=== PATIENT | female | born 1995 | race Caucasian/White ===

== ENCOUNTER 2017-12-12 01:20 | Emergency (ER) | payer BC ==
[2017-12-12] MEDS ORDERED: CEPHALEXIN 500 MG CAP PO ONE (02:36)
[2017-12-12] MEDS ORDERED: CEPHALEXIN 500MG PREPACK#4 BTL TAKEHOME ONE (02:36)
--- NOTE | 2017-12-12 02:38 | EDPHY ---
H & P Stated Complaint: SHERRI "SPIDER BITE" INCREASED REDNESS, STREAK/SINCE YEST Time Seen by Provider: 12/12/17 02:30 HPI/ROS: HPI The patient presents with right arm pain for the last 1 day. Two days ago she noticed what looked like an insect bite on her in her right arm. A few hours ago she noticed that it was more painful than it would then. She also noticed that it was more red. She has not had any fevers or chills, nausea or vomiting. She does have a history of some sort of cellulitis previously that required treatment with antibiotics.. REVIEW OF SYSTEMS Constitutional: No fever, no chills. Eyes: No discharge. ENT: No sore throat. Cardiovascular: No chest pain, no palpitations. Respiratory: No cough, no shortness of breath. Gastrointestinal: No abdominal pain, no vomiting. Genitourinary: No hematuria. Musculoskeletal: No back pain. Skin: No rashes. Neurological: No headache. PMHx: Asthma Soc Hx: College student PHYSICAL General Appearance: Alert, no distress Eyes: Pupils equal and round no pallor or injection ENT, Mouth: Mucous membranes moist Respiratory: There are no retractions, lungs are clear to auscultation Cardiovascular: Regular rate and rhythm Gastrointestinal: Abdomen is soft and non-tender, no masses, bowel sounds normal Neurological: A&O, moves all extremities Skin: Warm and dry, right anterior arm with 5 mm papule which is erythematous with surrounding mild erythema and tenderness, no axillary adenopathy is present Musculoskeletal: Neck is supple non tender Extremities: symmetrical, full range of motion Psychiatric: Patient is oriented X 3, there is no agitation Source: Patient Exam Limitations: No limitations - Personal History LMP (Females 10-55): Now Current Tetanus Diphtheria and Acellular Pertussis (TDAP): Yes Tetanus Vaccine Date: <5 years - Medical/Surgical History Hx Asthma: Yes Hx Chronic Respiratory Disease: No Hx Diabetes: No Hx Cardiac Disease: No Hx Renal Disease: No Hx Cirrhosis: No Hx Alcoholism: No Hx HIV/AIDS: No Hx Splenectomy or Spleen Trauma: No Other PMH: Asthma, scoliosis-Plasencia Rods, UTI, marijuana use;[facility]-2012- PERSISTANT PHOTOPHOBIA, SINUS SX NOVEMBER/2017 - Social History Smoking Status: Never smoked Constitutional: Initial Vital Signs Temperature (C) 36.5 C 12/12/17 01:25 Heart Rate 76 12/12/17 01:25 Respiratory Rate 16 12/12/17 01:25 Blood Pressure 128/80 H 12/12/17 01:25 O2 Sat (%) 98 12/12/17 01:25 O2 Delivery Mode Room Air Allergies/Adverse Reactions: No Known Allergies Allergy (Verified 11/20/15 09:48) Home Medications: Medication Instructions Recorded Cephalexin [Keflex (*)] 500 mg PO Q6H #28 cap 12/12/17 Medical Decision Making Differential Diagnosis: This is a 22-year-old female who presents with what began as what appeared to be a bug bite and now is more erythematous and painful. On exam she does have a papular lesion with surrounding erythema and tenderness. I plan to treat this as cellulitis and will give her a course of Keflex. I have discussed return precautions. I have also considered insect bite an abscess on my differential. - Data Points Medications Given: Discontinued Medications Cephalexin (Keflex 500 Mg Prepack#4) 1 btl TAKEHOME EDNOW ONE PRN Reason: Protocol Stop: 12/12/17 02:37 Last Admin: 12/12/17 02:46 Dose: 1 btl Cephalexin HCl (Keflex) 500 mg PO EDNOW ONE PRN Reason: Protocol Stop: 12/12/17 02:37 Last Admin: 12/12/17 02:46 Dose: 500 mg Departure - Departure Disposition: Home, Routine, Self-Care Clinical Impression: Cellulitis Qualifiers: Site of cellulitis: extremity Site of cellulitis of extremity: upper extremity Laterality: right Qualified Code(s): L03.113 - Cellulitis of right upper limb Condition: Good Instructions: Cephalexin (By mouth), Cellulitis (ED) Additional Instructions: Please return to the emergency department if your worse in any way. Referrals: NONE *PRIMARY CARE P,. [Primary Care Provider] - As per Instructions Prescriptions: Cephalexin [Keflex (*)] 500 mg PO Q6H #28 cap
[2017-12-12 02:49] VITALS: BP 119/77
== END 2017-12-12 02:48 | disposition home or self-care (01) ==
DX: L03.113 Cellulitis of right upper limb (principal); J45.909 Unspecified asthma, uncomplicated; W57.XXXA Bitten or stung by nonvenomous insect and other nonvenomous arthropods, initial encounter